=== PATIENT | male | born 1975 | race Caucasian/White ===

== ENCOUNTER 2019-01-13 14:27 | Emergency (ER) | payer OTHER ==
[~2019-01-13] VITALS: Ht 182.9 cm; Wt 132.0 kg
[2019-01-13] MEDS ORDERED: OLAN10TA3 PO (14:40)
[2019-01-13] MEDS ORDERED: NITR50CA PO (14:40)
[2019-01-13] MEDS ORDERED: PANT40TA4 PO (14:40)
[2019-01-13] MEDS ORDERED: METO-396 PO (14:40)
[2019-01-13] MEDS ORDERED: FAMO-135 PO (14:40)
[2019-01-13] MEDS ORDERED: SODIUM CHLORIDE 0.9% 1,000 ML IV ONE (15:45)
[2019-01-13] MEDS ORDERED: MORPHINE SULFATE 4 MG/ML CPJ (NOT FOR IM USE) IV STA (15:45)
[2019-01-13] MEDS ORDERED: ONDANSETRON HCL 4MG/2ML INJ IV STA (15:45)
[2019-01-13] MEDS ORDERED: HALOPERIDOL LACTATE 5MG/ML VIAL IM ONE ×2 (16:15→18:15)
[2019-01-13] MEDS ORDERED: DIPHENHYDRAMINE 50MG/ML VIAL IM ONE (16:15)
[2019-01-13] MEDS ORDERED: LORAZEPAM 2MG/ML CPJ IM ONE ×2 (16:15→18:15)
[2019-01-13 17:14] LABS: CLARITY URINE CLEAR (CLEAR); COLOR URINE YELLOW (YELLOW); KETONES URINE NEGATIVE (NEGATIVE); LEUKOCYTE ESTERASE URINE NEGATIVE (NEGATIVE); NITRITE URINE NEGATIVE (NEGATIVE); OCCULT BLOOD URINE NEGATIVE (NEGATIVE); PH URINE 5.5 (4.5-8.0); PROTEIN URINE NEGATIVE (NEGATIVE); SPECIFIC GRAVITY URINE 1.015 (1.005-1.030); UROBILINOGEN URINE 0.2 E.U./dL (0.2-1.0)
[2019-01-13 17:23] LABS: *AMPHETAMINES SCREEN URINE NEGATIVE (NEGATIVE); *BARBITURATES SCREEN URINE NEGATIVE (NEGATIVE); *BENZODIAZEPINES SCREEN URINE NEGATIVE (NEGATIVE); *COCAINE SCREEN URINE NEGATIVE (NEGATIVE); METHADONE URINE SCREEN NEGATIVE (NEGATIVE); OPIATES URINE SCREEN PRESUMTIVE POSITIVE (NEGATIVE)
[2019-01-13 17:24] LABS: CANNABINOID URINE SCREEN NEGATIVE (NEGATIVE); PHENCYCLIDINE URINE SCREEN NEGATIVE (NEGATIVE)
[2019-01-13 19:52] LABS: CHLORIDE 107 mEq/L (98-107)
[2019-01-13 19:54] LABS: BASOPHILS % 0.5 % (0.0-2.0); EOSINOPHILS % 6.8 % (0.0-5.0); HEMATOCRIT. 46.1 % (42.0-52.0); HEMOGLOBIN. 15.6 g/dL (14.0-18.0); INR 1.1; LYMPHOCYTES % 18.3 % (20.0-50.0); MEAN CORPUSCULAR VOLUME 88.5 fL (80.0-94.0); MEAN PLATELET VOLUME 10.7 fl (7.4-10.4); MONOCYTES % 7.5 % (2.0-8.0); NEUTROPHILS % 66.9 % (40.0-76.0); PLATELET 180 x1000/uL (130-400); PROTHROMBIN TIME 11.2 sec (9.6-11.0); RED BLOOD CELL COUNT 5.21 mill/uL (4.7-6.1); RED CELL DISTRIBUTION WIDTH 15.3 % (11.6-14.6)
[2019-01-13 19:56] LABS: ETHANOL BLOOD < 10 mg/dL
[2019-01-14] MEDS ORDERED: IOHEXOL-300 100 ML BOTTLE ONE (01:27)
[2019-01-14] MEDS ORDERED: LORAZEPAM 2MG/ML CPJ IM ONE (08:30)
[2019-01-14] MEDS ORDERED: ZIPRASIDONE MESYLATE 20MG/VIAL IM SCH (08:30)
[2019-01-14 10:30] VITALS: BP 138/81
== END 2019-01-14 11:21 | disposition home or self-care (01) ==
LOC: ER 14:27
DX: R10.33 Periumbilical pain (principal); F23 Brief psychotic disorder; R11.2 Nausea with vomiting, unspecified; R45.851 Suicidal ideations; R45.850 Homicidal ideations; R45.1 Restlessness and agitation; Z78.1 Physical restraint status
CPT/HCPCS: 36415; 51702; 74177; 80053; 80305; 80320; 81003; 83690; 85025; 85610; 93005; 96361; 96372; 96374; 96375; 99285; J1200; J1630; J2060; J2270; J2405; J3486; J7030; Q9967; Z7610; G0480